=== PATIENT | male | born 1995 ===

== ENCOUNTER 2017-09-29 15:31 | Emergency (ER) | payer SELFPAY ==
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
[2017-09-29] MEDS ORDERED: NS(*) 0.9% 1000 ML BAG 1,000 ML IV ONE (15:55)
[2017-09-29 16:01] LABS: PLATELET COUNT, AUTOMATED 314 K/uL (150-450)
[2017-09-29] MEDS ORDERED: EMS NS 0.9%(*) 1000 ML BAG 1,000 ML IV ONE (16:15)
--- NOTE | 2017-09-29 16:27 | RADIOLOGY IMAGING REPORT ---
FACILITY: [facility] PATIENT NAME: Adrian Nuno : 1995 MR: [id number] V: [id number] EXAM DATE: ORDERING PHYSICIAN: DOMINIQUE AZEVEDO [place]CHNOLOG[place] [facility] [place] : 1995 Visit/Account:[id number] Date of Sevice: 09/29/2017 EXAMINATION: Head CT without intravenous contrast HISTORY: Amnesia. Right frontal pain. COMPARISON: None. TECHNIQUE: Contiguous axial images were obtained from the skull base to the vertex without intraven ous contrast. Sagittal and coronal reformatted images are also submitted. One of the following dose optimization techniques was utilized in the performance of this exam: Autom ated exposure control; adjustment of the mA and/or kV according to the patient's size; or use of an i terative reconstruction technique. Specific details can be referenced in the facility's radiology C T exam operational policy. FINDINGS: Brain and intracranial structures: Ventricles, sulci, and cisterns are normal in size. Talavera-white ma tter differentiation is maintained. No midline shift, acute hemorrhage, acute infarct, or mass. Calvarium / scalp: Negative. Skull base / visualized face: Negative. Visualized sinuses / orbits: Moderate mucosal thickening in the maxillary sinuses. Frothy secretions within both maxillary sinuses. Trace mucosal thickening in the left sphenoid sinus. IMPRESSION: No acute intracranial abnormality. Paranasal sinus mucosal disease. Correlate for signs of acute sinusitis. Report Dictated By: Kalpesh Guillen MD at 09/29/2017 4:18 PM Report E-Signed By: Kalpesh Guillen MD at 09/29/2017 4:23 PM WSN:[id number]
[2017-09-29] MEDS ORDERED: IOPAMIDOL 76% 75 ML INFUS BTL 75 ML ONE (16:44)
--- NOTE | 2017-09-29 17:23 | RADIOLOGY IMAGING REPORT ---
FACILITY: [facility] PATIENT NAME: Adrian Nuno : 1995 MR: [id number] V: [id number] EXAM DATE: [id number] ORDERING PHYSICIAN: DOMINIQUE AZEVEDO TECHNOLOGIST: [place] [facility] [place] Adrian N[place] : 1995 Visit/Account:[id number] Date of Sevice: 09/29/2017 Exam type: SHOULDER MIN 2 VIEWS RIGHT History: Shoulder pain, amnesia Comparison: None. Findings: Two views of the right shoulder reveal no evidence of acute fracture-dislocation or significant arthr itic change. No evidence of a right AC joint separation. IMPRESSION: 1. No acute osteoarticular abnormality the right shoulder seen Report Dictated By: Delia Eric MD at 09/29/2017 5:17 PM Report E-Signed By: Delia Eric MD at 09/29/2017 5:18 PM WSN:[id number]
--- NOTE | 2017-09-29 17:23 | RADIOLOGY IMAGING REPORT ---
FACILITY: [facility] PATIENT NAME: Adrian Nuno : 1995 MR: [id number] V: [id number] EXAM DATE: ORDERING PHYSICIAN: DOMINIQUE AZEVEDO TECHNOLOGIST: Location: [facility] Patient: Adrian Nuno : 1995 Visit/Account:[id number] Date of Sevice: 09/29/2017 EXAMINATION: Chest radiographs 2 views HISTORY: Amnesia. COMPARISON: None. FINDINGS: PA and 2 lateral views of the chest are submitted. Lines/tubes: None. Lungs/pleura: No focal consolidation or pleural effusion. Heart: Negative. Mediastinum: Negative. Bony structures/body wall: No acute fracture visualized. IMPRESSION: No radiographic evidence of acute cardiopulmonary disease. Report Dictated By: Adelita Kenney MD at 09/29/2017 5:17 PM Report E-Signed By: Adelita Kenney MD at 09/29/2017 5:18 PM WSN:[id number]
--- NOTE | 2017-09-29 17:29 | RADIOLOGY IMAGING REPORT ---
FACILITY: [facility] [place] PATIENT NAME: Adrian Nuno : 1995 MR: [id number] V: [id number] EXAM DATE: ORDERING PHYSICIAN: DOMINIQUE AZEVEDO TECHNOLOGIST: [place] [facility] [place] Patient: Adrian Nuno : 1995 Visit/Account:[id number] Date of Sevice: 09/29/2017 EXAMINATION: CTA of the Neck with IV contrast HISTORY: And lesion. TECHNIQUE: Overlapping thin sections were obtained during a bolus of IV contrast from the aortic ar ch through the midbrain. Reconstruction of the source data set includes multiplanar 2D in the sagitta l and coronal planes, and 3D coronal thin slab MIP series. [employer] images have been stored on PACS. Stenosis of the internal carotid arteries are calculated using NASCET criteria. One of the following dose optimization techniques was utilized in the performance of this exam: Autom ated exposure control; adjustment of the mA and/or kV according to the patient's size; or use of an i terative reconstruction technique. Specific details can be referenced in the facility's radiology C T exam operational policy. CONTRAST: 75 mL of IV Isovue-370. COMPARISON: None. FINDINGS: Aortic arch and great vessels: Negative. Right CCA / ICA: No aneurysm, dissection, stricture or filling defect. Left CCA / ICA: No aneurysm, dissection, stricture or filling defect. Vertebro-basilar: No aneurysm, dissection, stricture or filling defect. [place]: No aneurysm, dissection, stricture or filling defect. Visualized RAJWINDRE, MCA and DRYING TUMBLER OPERATOR circulation: No focal abnormality. Additional non-angiographic findings: Soft tissues of the neck show no focal abnormality. Lung apices are clear. The bony structures are no rmal for age without acute abnormality or discrete lesion. There is rightward deviation nasal septum. Mucosal thickening seen in both maxillary sinuses, left greater than right. Brain shows no focal abn ormality, enhancing lesions or areas of abnormal enhancement. Visualized intracranial venous system i s unremarkable. IMPRESSION: 1. Normal CTA of the neck. 2. Bilateral maxillary sinus disease. Report Dictated By: Hi Sims at 09/29/2017 5:13 PM Report E-Signed By: Hi Sims at 09/29/2017 5:24 PM WSN:[id number]
[2017-09-29 18:10] VITALS: BP 115/84
== END 2017-09-29 18:18 | disposition home or self-care (01) ==
LOC: ER 15:42
DX: R41.3 Other amnesia (principal); F12.10 Cannabis abuse, uncomplicated; S10.91XA Abrasion of unspecified part of neck, initial encounter; S00.81XA Abrasion of other part of head, initial encounter; S30.811A Abrasion of abdominal wall, initial encounter
CPT/HCPCS: 70450; 70498; 71046; 73030; 80305; 80320; 81001; 85025; 96360; 96361; 99284; J7030; Q9967; 82040; 82247; 82310; 82374; 82435; 82565; 82947; 84075; 84132; 84155; 84295; 84450; 84460; 84520